=== PATIENT | male | born 1970 | race Caucasian/White ===

== ENCOUNTER → 2017-04-16 | Outpatient (REF) | payer BC | LOC: M SFHCLERA 16:27 | PROVIDERS: ATTEND Nurse Practitioner Family | DX: L08.9 Local infection of the skin and subcutaneous tissue, unspecified (principal) ==

== ENCOUNTER 2021-05-28 15:03 | Emergency (ER) | payer BC ==
[~2021-05-28] VITALS: Ht 172.7 cm; Wt 124.4 kg
[2021-05-28] MEDS ORDERED: HUMA100I5 (15:10)
[2021-05-28] MEDS ORDERED: LANTINJ4 SC (15:10)
[2021-05-28] MEDS ORDERED: TETRACAINE 0.5% OPHTH SOLN 4ML OU ONE (16:05)
[2021-05-28] MEDS ORDERED: FLUORESCEIN OPHTH 1 MG STRIP OU ONE (16:05)
[2021-05-28] MEDS ORDERED: ACUL0.5S OS (16:46)
[2021-05-28] MEDS ORDERED: CIPR0.3S6 OS (16:46)
[2021-05-28] MEDS ORDERED: CIPROFLOXACIN 0.3% OPHTH SOLN 2.5ML OS ONE (16:50)
[2021-05-28] MEDS ORDERED: KETOROLAC 0.5% OPHTH SOLN OS ONE (16:50)
[2021-05-28 17:04] VITALS: BP 147/82
== END 2021-05-28 17:05 | disposition home or self-care (01) ==
LOC: M ED 15:03
DX: S05.8X2A Other injuries of left eye and orbit, initial encounter (principal); T15.02XA Foreign body in cornea, left eye, initial encounter; X58.XXXA Exposure to other specified factors, initial encounter; Y92.018 Other place in single-family (private) house as the place of occurrence of the external cause; Y93.H9 Activity, other involving exterior property and land maintenance, building and construction; E10.9 Type 1 diabetes mellitus without complications; Z79.4 Long term (current) use of insulin; F17.210 Nicotine dependence, cigarettes, uncomplicated